=== PATIENT | female | born 1955 | race Caucasian/White ===

== ENCOUNTER 2023-11-24 14:35 | Emergency (ER) | payer MEDICARE, OTHER | END 2023-11-24 15:21 | disposition home or self-care (01) | LOC: BURERS 14:35 | DX: J02.9 Acute pharyngitis, unspecified (principal); M54.50 Low back pain, unspecified; I10 Essential (primary) hypertension; I25.2 Old myocardial infarction; Z87.891 Personal history of nicotine dependence | CPT/HCPCS: 87081; 87430; 99283 ==